=== PATIENT | female | born 1930 | race Caucasian/White ===

== ENCOUNTER → 2016-10-01 | Outpatient (CLI) | payer MEDICARE, BC ==
[~2016-10-01] MED LIST: NEURONTIN100 MG/CAP PO; NORCO 325 MG-51 TAB PO; PROAIR HFA0.09 MG/AC IH; RT ADVAIR HFA 412 GM IH; SINGULAIR 110 MG/TAB PO; ZYLOPRIM 100MG100 MG PO; ZYRTEC 10MG10 MG PO
== END ==
LOC: COL.VAS 09:09
DX: I34.0 Nonrheumatic mitral (valve) insufficiency (principal); I28.8 Other diseases of pulmonary vessels; R60.0 Localized edema

== ENCOUNTER 2016-10-24 10:05 | Outpatient (CLI) | payer MEDICARE, BC ==
[2016-10-24] VITALS (9 sets, daily range): BP systolic 107–144; BP diastolic 59–75; PULSE 67–90; TEMP 97.5–98.6
== END 2016-10-24 18:46 | disposition home or self-care (01) ==
LOC: SURG 10:05 → EUO 10:05
DX: C91.10 Chronic lymphocytic leukemia of B-cell type not having achieved remission (principal); R60.0 Localized edema; D64.9 Anemia, unspecified; D69.59 Other secondary thrombocytopenia
CPT/HCPCS: OP; J7050; P9016

== ENCOUNTER → 2017-02-10 | Outpatient (CLI) | payer MEDICARE, BC | LOC: COL.RAD 15:30 | DX: N28.1 Cyst of kidney, acquired (principal); K76.89 Other specified diseases of liver ==

== ENCOUNTER → 2018-10-15 | Outpatient (CLI) | payer MEDICARE, BC ==
[~2018-10-15] VITALS: Ht 152.4 cm; Wt 52.8 kg
[~2018-10-15] MED LIST changes: +IMBRUVICA280 MG PO; +MAG64 110 MG-181 ECT PO; +THE MEDICINE S200 M2 PO; +VITAMIND3 5000 PO
[2018-10-15 06:43] VITALS: BP 142/84; PULSE 76
[2018-10-15 07:42] VITALS: BP 146/78; PULSE 66
[2018-10-15 07:52] VITALS: BP 132/73; PULSE 94
[2018-10-15 07:53] VITALS: BP 140/75; PULSE 94
[2018-10-15 07:54] VITALS: BP 154/79; PULSE 99
[2018-10-15 07:55] VITALS: BP 124/56; PULSE 89
== END ==
LOC: COL.CARD 06:13
DX: I08.3 Combined rheumatic disorders of mitral, aortic and tricuspid valves (principal)
CPT/HCPCS: A9500; J2785

== ENCOUNTER 2018-12-25 06:56 | Day surgery (SDC) | payer MEDICARE, BC ==
[~2018-12-25] VITALS: Ht 154.9 cm; Wt 52.4 kg
[2018-12-25 07:22] VITALS: BP 133/93; PULSE 70; TEMP 97.5
[2018-12-25] MEDS ORDERED: PRILOSEC 20MG20 MG PO (07:38)
[2018-12-25] MEDS ORDERED: BACOPA PO (07:38)
[2018-12-25] MEDS ORDERED: MAGNESIUM250 M1 PO (07:39)
[2018-12-25] MEDS ORDERED: ZYLOPRIM 100MG100 MG PO (07:39)
[2018-12-25] MEDS ORDERED: THE MEDICINE S200 M2 PO (07:40)
[2018-12-25] MEDS ORDERED: ZERTEC PO (07:40)
[2018-12-25] MEDS ORDERED: STIOLTO RESPIMAT4 GM IH (07:41)
[2018-12-25] MEDS ORDERED: IMBRUVICA140 M1 PO (07:41)
[2018-12-25 09:00] VITALS: BP 122/78; PULSE 75
--- NOTE | 2018-12-25 09:00 | NUR ---
Patient returns to room 3 per cart and transfers from cart to recliner with one person assist. IV fluids infusing and patient denies pain or nausea. Temp 97.8 and room air sats 97%. Call light in reach. Friend in room.
[2018-12-25 09:15] VITALS: BP 133/93; PULSE 70
--- NOTE | 2018-12-25 09:15 | NUR ---
Dr. Dalal here to talk with the patient and friend and all questions answered. Tolerates crackers and water.
[2018-12-25 09:30] VITALS: BP 148/71; PULSE 70
--- NOTE | 2018-12-25 09:30 | NUR ---
IV discontinued and given dimissal instructions. Patient dresses self.
--- NOTE | 2018-12-25 09:32 | NUR ---
Patient dismissed to home per private vehicle driven by friend and taken to the front door per wheelchair and assisted into vehicle by RN with instructions in hand.
== END 2018-12-25 09:32 | disposition home or self-care (01) ==
LOC: SDCO 06:56
DX: Z12.11 Encounter for screening for malignant neoplasm of colon (principal); K57.30 Diverticulosis of large intestine without perforation or abscess without bleeding; E78.00 Pure hypercholesterolemia, unspecified; D50.9 Iron deficiency anemia, unspecified; J44.9 Chronic obstructive pulmonary disease, unspecified; M19.90 Unspecified osteoarthritis, unspecified site; Z88.0 Allergy status to penicillin; Z88.2 Allergy status to sulfonamides; Z88.8 Allergy status to other drugs, medicaments and biological substances; Z86.010 Personal history of colon polyps; Z87.891 Personal history of nicotine dependence; Z85.6 Personal history of leukemia
CPT/HCPCS: J2704; J3010; J7030